=== PATIENT | female | born 1965 | race Caucasian/White ===

== ENCOUNTER 2019-07-15 08:04 | Emergency (ER) | payer SELFPAY ==
[~2019-07-15 08:04] MED LIST: AMOXICILLIN500 MG PO; NAPROSYN500 MG PO; NO HOME MEDS; VENTOLIN HFA IN; ZITHROMAX250 MG OR
[2019-07-15] MEDS ORDERED: ZPAK PO (08:54)
[2019-07-15 09:21] VITALS: BP 141/80
[2019-12-27] MEDS ORDERED: LYRICA150 MG PO (10:07)
[2019-12-27] MEDS ORDERED: MEDDOSEPAK PO (10:08)
[2019-12-28] MEDS ORDERED: LOPRESSOR25 M1 PO (10:55)
[2019-12-28] MEDS ORDERED: LIPITOR80 M1 PO (10:58)
== END 2019-07-15 09:20 | disposition home or self-care (01) | DRG 153 ==
LOC: ED 08:04
DX: J06.9 Acute upper respiratory infection, unspecified (principal); F17.210 Nicotine dependence, cigarettes, uncomplicated

== ENCOUNTER 2019-11-23 15:27 | Inpatient (IN) | payer BC ==
[2019-11-23] VITALS (8 sets, daily range): BP systolic 128–183; BP diastolic 78–93
[~2019-11-23] VITALS: Ht 157.5 cm; Wt 75.0 kg
[~2019-11-23 15:27] MED LIST changes: +ZPAK PO
--- NOTE | 2019-11-23 15:28 | NUR ---
UPON ARRIVAL TO ER PT RESPONDING TO TACTILE STIMULI, PEE, BUT TEMP RIGHT SIDED GAZE NOTED. PT MEDICATED WITH NARCAN 0.8 IV WITH NO CHANGE IN MENTAL STATUS. PER EMS NARCAN 4MG IVP GIVEN ENROUTE WITH SIGNIFICANT CHANGE.
--- NOTE | 2019-11-23 15:30 | NUR ---
NO RIGHT SIDED GAZE NOTED AT THIS ITME. PT LOOKING AROUND ROOM AND LOOKS IN THE DIRECTION OF NURSES TALKING.
--- NOTE | 2019-11-23 15:38 | NUR ---
PER EMS - APPROXIMATELY 45 MINUTES AGO, PT WAS SITTING WITH FRIENDS, SHE STATED THAT SHE FELT HER BLOOD SUGAR WAS GETTING LOW SO SHE WENT INTO THE KITCHEN TO EAT SOMETHING. FRIENDS FOUND PT UNRESPONSIVE , CALLED 911, PER EMS PT WAS SLOW TO RESPOND TO TACTILE STIMULI. INITIAL 02 SAT 89% - PLACED ON NRB - 02 AT 100% PT HAS HX OF DM , ACCUCHECK 102 BY EMS.
--- NOTE | 2019-11-23 15:40 | NUR ---
ROCURONIUM 100MG AND ETOMIDATE 20MG IVP PRIOR TO ET TUBE PLACEMENT. RT AT BEDSIDE TO ASSIST WITH INTUBATION. GOOD BREATH SOUNDS NOTED, 02 100% AT THIS TIME. TUBE SECURELY PLACED PER [facility] POLICY.
--- NOTE | 2019-11-23 15:49 | NUR ---
DAUGHTER ON PHONE WITH GEETA BENSONCOIL BINDER NURSE, SHE STATES " MOM IS TAKING LYRICA THAT ISN'T PRESCRIBED TO HER. FAMILY MEMBER IS UNAWARE OF HOW MUCH LYRICA MOTHER HAS TAKEN.
--- NOTE | 2019-11-23 15:53 | NUR ---
DYSPHAGIA SCREEN DEFERRED S/T PT INTUBATED AND SEDATED AT THIS TIME.
[2019-11-23 15:55] LABS: GFR > 60 ML/MIN (>=60 (CALC)); GFR FOR AFR.AMER. > 60 ML/MIN (>=60 (CALC))
--- NOTE | 2019-11-23 16:00 | NUR ---
BILATERAL SOFT WRIST RESTRAINTS INITIATED.
--- NOTE | 2019-11-23 16:10 | NUR ---
PT HYPERTENSIVE AT 192/96 AND SOME TWITCHING NOTED TO FACE. DR EASLEY GAVE VERBAL ORDER FOR 5 ML [address]OL IVP. DR EASLEY AND BEDSIDE AND GAVE 5 ML OF PROPOFOL IVP. PT NOW SEDATED.
[2019-11-23 16:18] LABS: HEMATOCRIT 36.5 % (37.0-47.0); HEMOGLOBIN 11.4 g/dl (12.0-16.0); IMMATURE GRANULOCYTES 0.3 % (0.0-5.0); MEAN CELL VOLUME 82.8 fL CALC (80.0-100.0); MEAN CORPUSCULAR HGB 25.9 pG CALC (26.0-32.0); MEAN CORPUSCULAR HGB CONC 31.2 g/dL CAL (32.0-36.0); NEUT# 2.96 thou/uL (2.00-7.15); RED BLOOD COUNT 4.41 mill/uL (4.20-5.60); RED CELL DISTRI WIDTH 17.2 % (11.5-15.5)
--- NOTE | 2019-11-23 16:22 | NUR ---
TO CT SCAN WITHOUT INCIDENT. PT REMAINED SEDATED.
[2019-11-23 16:24] LABS: INTERNATIONAL NORMALIZED RATIO 1.2 RATIO (0.7-1.3); PROTHROMBIN TIME 12.3 SECONDS (9.0-12.5)
[2019-11-23 16:36] LABS: MYOGLOBIN 27 ng/mL (0 - 62)
[2019-11-23 16:40] LABS: ALBUMIN 3.5 g/dL (3.2-5.0); ANION GAP 8 (6-22 (CALC)); BUN 6 mg/dL (7-17); BUN/CREATININE RATIO 10 (12-20 (CALC)); C-REACTIVE PROTEIN < 0.5 mg/dL (0-0.9); CARBON DIOXIDE 21 mmol/l (22-30); CHLORIDE 111 mmol/l (95-108); CREATININE 0.6 mg/dL (0.5-1.0); ETHYL ALCOHOL 0 mg/dl (0-30); GFR > 60 ML/MIN (>=60 (CALC)); GFR FOR AFR.AMER. > 60 ML/MIN (>=60 (CALC)); LIPASE 263 u/l (23-300); POTASSIUM 3.4 mmol/l (3.5-5.1); SODIUM 137 mmol/l (137-146); TOTAL PROTEIN 6.9 g/dL (6.3-8.2); URINE BILIRUBIN - DIPSTICK NEGATIVE (NEGATIVE); URINE BLOOD DIPSTICK NEGATIVE (NEGATIVE); URINE COLOR YELLOW; URINE GLUCOSE - DIPSTICK NEGATIVE (NEGATIVE); URINE KETONE NEGATIVE (NEGATIVE); URINE LEUK ESTERASE NEGATIVE (NEGATIVE); URINE PROTEIN - DIPSTICK NEGATIVE (NEG-TRACE); URINE SPECIFIC GRAVITY 1.015; URINE UROBILINOGEN - DIPSTICK 0.2 E.U./dL (0.2)
[2019-11-23 16:42] LABS: URINE NITRITE - DIPSTICK POSITIVE (Negative)
[2019-11-23 16:46] LABS: ALKALINE PHOSPHATASE 185 u/l (38-126); BILIRUBIN, TOTAL 0.5 mg/dL (0.0-1.4); SGOT/AST 81 u/l (14-36)
--- NOTE | 2019-11-23 16:48 | NUR ---
RETURNED FROM CT SCAN WITHOUT INCIDENT.PT REMAINED SEDATED.
[2019-11-23 16:53] LABS: URINE BACTERIA MODERATE hpf; URINE RBC 0-2 RBC/hpf (0-5); URINE SQUAMOUS EPITHELIAL CELL FEW EPI/hpf (0-FEW); URINE WBC 0-2 WBC/hpf (0-5)
--- NOTE | 2019-11-23 17:10 | NUR ---
PT FLAILING ARMS AND SHAKING HEAD. MD NOTIFIED. AWAITING NEW ORDERS.
--- NOTE | 2019-11-23 17:20 | NUR ---
AFTER ADMINISTERING FENTANYL PT RESTING COMFORTABLY AND IS SEDATED.
--- NOTE | 2019-11-23 17:30 | NUR ---
PATIENT REMAINS SEDATED, 800 MLS OF EDUARDO COLORED URINE EMPTIED FROM YING.
--- NOTE | 2019-11-23 17:46 | NUR ---
SISTER IN LAW AT BEDSIDE. VERSED AND LEVAPHED INITIATED. PLAN FOR ADMISSION DISCUSSED WITH FAMILY. FAMILY REPORTS PTS MOTHER INTUBATED IN [place] FOR COVID 19. PT HAD BEEN TESTED AND FAMILY STATES WAS NEGATIVE AT THAT TIME.
--- NOTE | 2019-11-23 18:00 | NUR ---
FAMILY REPORTS PT HAS NEW DX OF HEP C AND LIVER DISEASE. MD NOTIFIED.
--- NOTE | 2019-11-23 18:24 | NUR ---
FAMILY AT BEDSIDE. PT REMAINS SEDATED. IV SITES FREE FROM REDNESS OR EDEMA.
--- NOTE | 2019-11-23 18:45 | NUR ---
REINFORED VISITATION WITH PT'S SITER IN LAW.
--- NOTE | 2019-11-23 18:53 | NUR ---
MINIMAL MOVEMENT NOTED TO BILAT ARMS, [place] INCREASED. FAMILY AT BEDSIDE.
--- NOTE | 2019-11-23 19:00 | NUR ---
CALL PLACED TO ICU SPOKE TO REMIGIO, STATES "IN THE MIDDLE OF REPORT, THEY WILL CALL YOU BACK."
--- NOTE | 2019-11-23 19:11 | NUR ---
NURSE TO NURSE REPORT CALLED TO KARY BENSON.
--- NOTE | 2019-11-23 19:30 | NUR ---
AWAITING ICU ACCEPTANCE. PT RESTING. OCCASIONAL MOVEMENT OF ARMS WHICH ARE IN SOFT RETRAINTS. VSS. DRIPS INFUSING INTO CENTRAL LINE.
--- NOTE | 2019-11-23 19:45 | NUR ---
KELLEY PRESTON, ICU CALLED TO HAVE PT BROUGHT UP RT CALLED.
--- NOTE | 2019-11-23 20:10 | NUR ---
PT BAGGED AND ON PORTABLE MONITOR.
--- NOTE | 2019-11-23 20:10 | NUR ---
PT TO ICU BED 8. INTUBATED, BAGGING IN PROCESS FOR TRANSPORT.
--- NOTE | 2019-11-23 20:10 | NUR ---
PT READIED FOR TRANPORT. RT HERE. PT TO FLOOR VIA STRETCHER WITH ET/OG/CENTRAL LINE WITH VERSED/DIPROVAN/LEVAPHED DRIP.
--- NOTE | 2019-11-23 20:15 | NUR ---
RECEIVED PT FROM ER, PT SEDATED ON VENT. #18 OG, #16F YING CATH, DRAINING CLEAR YELLOW URINE. #20 EMS IV L HAND, #20 IV R WRIST, TRIPLE LUMEN R IJ. VERSED GTT AT 3MG/HR INFUSING, PROPOFOL AT 50MCG/KG/MIN INFUSING, LEVOPHED AT 8MCG/MIN INFUSING ALL TO R C-LINE. SOFT RESTRAINTS TO BILAT WRIST.
--- NOTE | 2019-11-23 20:30 | NUR ---
PT TRANSPORTED TO ICU 8. PLACED BACK ON MECHANICAL VENTILATION. RT CALLED ER'S DOCTOR TO ASK IF HE WANTS TO ORDER A BLOOD GAS. TALK TO SELAM MCMILLAN.
--- NOTE | 2019-11-23 22:40 | NUR ---
ATTEMPTED TO DECREASE PROPOFOL AND VERSED DRIPS, PT STARTED PULLING AT RESTRAINTS, MOVING LEGS. MEDS REMAINED AT PROPOFOL 50MCG/KG/MIN VERSED AT 2MG/HR.
[2019-11-24] VITALS (39 sets, daily range): BP systolic 115–167; BP diastolic 65–95
--- NOTE | 2019-11-24 | NUR ---
PT REMAINS SEDATED ON VENT. SA02 100% YING DRAINING CLEAR YELLOW URINE. VS PER MONITOR.
--- NOTE | 2019-11-24 02:00 | NUR ---
PT SEDATED ON VENT, SR 74, SA02 100% MOVING TONGUE WITH MOUTH CARE.
[2019-11-24 05:16] LABS: HEMATOCRIT 37.2 % (37.0-47.0); HEMOGLOBIN 11.4 g/dl (12.0-16.0); IMMATURE GRANULOCYTES 0.2 % (0.0-5.0); MEAN CELL VOLUME 84.4 fL CALC (80.0-100.0); MEAN CORPUSCULAR HGB 25.9 pG CALC (26.0-32.0); MEAN CORPUSCULAR HGB CONC 30.6 g/dL CAL (32.0-36.0); NEUT# 3.27 thou/uL (2.00-7.15); RED BLOOD COUNT 4.41 mill/uL (4.20-5.60); RED CELL DISTRI WIDTH 17.2 % (11.5-15.5)
[2019-11-24 05:27] LABS: ALBUMIN 3.2 g/dL (3.2-5.0); ALKALINE PHOSPHATASE 159 u/l (38-126); ANION GAP 6 (6-22 (CALC)); BILIRUBIN, TOTAL 0.3 mg/dL (0.0-1.4); BUN 4 mg/dL (7-17); BUN/CREATININE RATIO 9 (12-20 (CALC)); CHLORIDE 109 mmol/l (95-108); CREATININE 0.5 mg/dL (0.5-1.0); GFR > 60 ML/MIN (>=60 (CALC)); GFR FOR AFR.AMER. > 60 ML/MIN (>=60 (CALC)); POTASSIUM 3.8 mmol/l (3.5-5.1); SGOT/AST 73 u/l (14-36); SODIUM 139 mmol/l (137-146); TOTAL PROTEIN 6.5 g/dL (6.3-8.2)
[2019-11-24 05:28] LABS: CARBON DIOXIDE 28 mmol/l (22-30)
--- NOTE | 2019-11-24 06:00 | NUR ---
RT AT BEDSIDE FOR ABG. PT MOVING EXTREMITIES.
--- NOTE | 2019-11-24 07:18 | NUR ---
PT TURNED TO L SIDE. REMAINED SEDATED, ON VENT.
--- NOTE | 2019-11-24 07:45 | NUR ---
SEDATION REDUCED TO TEST FOR EXTUBATION. PT AGGRESSIVELY FIGHTING WITH STAFF, NOT FOLLOWING COMMANDS. SEDATION RESTARTED AT 9321
--- NOTE | 2019-11-24 08:08 | NUR ---
PTS SISTER, ALEJO RAJAN, CALLED FOR UPDATE ON PT. SISTER SPOKE WITH DR DSOUZA.
--- NOTE | 2019-11-24 08:11 | NUR ---
DAUGHTER CALLED FOR UPDATE ON MOM. DAUGHTER ASKED TO FOLLOW UP WITH AUNT D/T PT LOAD. DAUGHTER BECAME BELIGERENT WITH THIS RN. PHONE CONVERSATION COMPLETED.
--- NOTE | 2019-11-24 08:15 | NUR ---
SISTER AGREED TO BE SPOKES PERSON FOR PT. SISTER AWARE PT CAN NOT HAVE VISITORS AT THIS TIME.
--- NOTE | 2019-11-24 10:19 | NUR ---
RT TURNED O2 DOWN TO 50%
--- NOTE | 2019-11-24 10:32 | NUR ---
LIS RESTARTED AFTER PO MED GIVEN x1 HR AGO.
--- NOTE | 2019-11-24 11:04 | NUR ---
PTS SISTER, ALEJO, CALLED TO INFORM THAT PT SMOKED A "BLUNT" RIGHT BEFORE THIS HAPPENED AND SHE THINKS BLUNT MIGHT HAVE BEEN LACED WITH FENTENYL.
--- NOTE | 2019-11-24 12:56 | NUR ---
RT @BEDSIDE, O2 TITRATED DOWN TO 40%. SISTER, ALEJO CALLED FOR UPDATE.
--- NOTE | 2019-11-24 13:42 | NUR ---
PT CONTINUES TO BREATH AROUND TUBE, MOVE FEET, TRY TO BRING HANDS UP TO HEAD. SEDATION TITRATED. RESTRAINTS REPOSITIONED.
[2019-11-24] MEDS ORDERED: LYRICA75 MG PO (15:29)
[2019-11-24] MEDS ORDERED: MELOXICAM7.5 MG PO (15:29)
[2019-11-24] MEDS ORDERED: CYMBALTA60 MG PO (15:30)
[2019-11-24] MEDS ORDERED: METFORMIN HCL500 M1 PO (15:30)
[2019-11-24] MEDS ORDERED: COZAAR25 MG PO (15:30)
--- NOTE | 2019-11-24 16:29 | NUR ---
RT @BEDSIDE FOR DEEP SUCTIONING.
--- NOTE | 2019-11-24 17:14 | NUR ---
ALEJO KNIGHT, CALLED FOR UPDATE ON PT. PT APPEARS CALM/SEDATED. BREATHING NONLABORED, LUNGS CTA. SCD ON. VSS. IVF, PROPOFOL, VERSED DRIP RUNNING.
--- NOTE | 2019-11-24 17:18 | NUR ---
DR DSOUZA CALLED FOR PT UPDATE. WILL TRY TO EXTUBATE AGAIN TOMORROW AM.
--- NOTE | 2019-11-24 19:10 | NUR ---
PT SEDATED ON VENT. BILAT WRIST RESTRAINTS IN PLACE. NO DISTRESS NOTED.
--- NOTE | 2019-11-24 20:00 | NUR ---
PT SEDATED ON VENT. PROPOFOL INFUSING AT 55MCG, VERSED AT 20ML/HR. SEE RESTRAINT DOCUMENTATION. OG WITH YELLOW DRAINAGE, YING WITH EDUARDO URINE. SCD'S IN PLACE.
--- NOTE | 2019-11-24 21:30 | NUR ---
AUSCULTATED OG FOR PLACEMENT, POSITIVE FOR STOMACH. INSTILLED 12.5ML TAMIFLU FOLLOWED WITH 30 CC FLUSH.
--- NOTE | 2019-11-24 22:10 | NUR ---
RESP CALLED TO BEDSIDE FOR VENT FILTER. CHANGED BY RT.
--- NOTE | 2019-11-24 22:15 | NUR ---
RT AT BEDSIDE, PT DEEP SUCTIONED.
--- NOTE | 2019-11-24 22:25 | NUR ---
SPOKE WITH ALEJO, FAMILY MEMBER, UPDATE PROVIDED.
--- NOTE | 2019-11-24 22:35 | NUR ---
PATIENT RECEIVED WITH THE FOLLOWING SETTING: AC 20, VT 400, 5PEEP WITH 40% FIO2.
--- NOTE | 2019-11-24 23:45 | NUR ---
PT PULLING AT RESTRAINTS. PROPOFOL GTT TO 60MCG, VERSED TO 3MG/HR.
[2019-11-25] VITALS (47 sets, daily range): BP systolic 129–196; BP diastolic 68–115
--- NOTE | 2019-11-25 00:30 | NUR ---
PT MOVING HEAD, PULLING AT VENT TUBING. PT MOVING UPPER EXTREMITIES, PULLING AGAINST RESTRAINTS. PROPOFOL INCREASED TO 65MCG
--- NOTE | 2019-11-25 02:00 | NUR ---
PT WITH MOVEMENT TO UPPER EXTREMITIES. ORAL CARE PROVIDED, PUSHES TONGUE TOWARD SPONGE.
--- NOTE | 2019-11-25 03:45 | NUR ---
BED BATH AND ORAL CARE PROVIDED. LINENS CHANGED.
--- NOTE | 2019-11-25 04:00 | NUR ---
SCD'S OFF AT BATH.
--- NOTE | 2019-11-25 04:30 | NUR ---
PT RESTING QUIETLY.
[2019-11-25 05:40] LABS: HEMATOCRIT 35.9 % (37.0-47.0); HEMOGLOBIN 11.2 g/dl (12.0-16.0); MEAN CELL VOLUME 83.7 fL CALC (80.0-100.0); MEAN CORPUSCULAR HGB 26.1 pG CALC (26.0-32.0); MEAN CORPUSCULAR HGB CONC 31.2 g/dL CAL (32.0-36.0); RED BLOOD COUNT 4.29 mill/uL (4.20-5.60); RED CELL DISTRI WIDTH 17.5 % (11.5-15.5)
--- NOTE | 2019-11-25 05:52 | NUR ---
RESP AT BEDSIDE FOR ABG.
[2019-11-25 05:56] LABS: ALBUMIN 2.8 g/dL (3.2-5.0); ALKALINE PHOSPHATASE 144 u/l (38-126); ANION GAP 7 (6-22 (CALC)); BILIRUBIN, TOTAL 0.4 mg/dL (0.0-1.4); BUN 5 mg/dL (7-17); BUN/CREATININE RATIO 11 (12-20 (CALC)); CARBON DIOXIDE 24 mmol/l (22-30); CHLORIDE 111 mmol/l (95-108); CREATININE 0.5 mg/dL (0.5-1.0); GFR > 60 ML/MIN (>=60 (CALC)); GFR FOR AFR.AMER. > 60 ML/MIN (>=60 (CALC)); POTASSIUM 3.2 mmol/l (3.5-5.1); SGOT/AST 63 u/l (14-36); SODIUM 138 mmol/l (137-146); TOTAL PROTEIN 6.2 g/dL (6.3-8.2)
--- NOTE | 2019-11-25 06:45 | NUR ---
RECVD REPORT FROM KELLEY PRESTON @START OF SHIFT.
--- NOTE | 2019-11-25 08:06 | NUR ---
EXTUBATION ATTEMPTED/ RT @BEDSIDE: PROPOFOL & VERSED DRIP STOPPED @0713 RT PLACED VENT ON RATE 12, PT IS BREATHING 18 @0718 EYES OPEN OCCASSIONALY @0739 PT SQUIRMING ALL OVER BED, KICKING LEGS, PULLING ON WRIST RESTRAINTS, UNABLE TO FOLLOW DIRECTIONS. MD @BEDSIDE. PROPOFOL RESTARTED @0800. WILL TRY TO EXTUBATE AGAIN AROUND NOON.
--- NOTE | 2019-11-25 08:11 | NUR ---
PT note Patient is screened for rehab intervention. She is still early in her medical evaluation and we will hold off on any rehab but follow through interdisciplinary team
--- NOTE | 2019-11-25 08:33 | NUR ---
RT PLACED PT ON SPONTANEOUS VENT. PT NOW APPEARS RESTFUL. BED ALARM SET TO NOTIFY STAFF OF CONTINUED MOVEMENT.
--- NOTE | 2019-11-25 08:50 | NUR ---
TRIED TO CALL PTS EUGENE FOR UPDATE- NO ANSWER
--- NOTE | 2019-11-25 10:46 | NUR ---
RT @BEDSIDE FOR ASSESSMENT.
--- NOTE | 2019-11-25 12:09 | NUR ---
PROPOFOL TITRATED DOWN TO 35MCG/KG/MIN @1128 PROPOFOL STOPPED FOR EXTUBATION TEST @1135 PROFOL RESTARTED AT 65MCG/KG/MIN @1205 DR DSOUZA NOTIFIED OF UNSUCCESSFUL ATTEMPT.
--- NOTE | 2019-11-25 13:15 | NUR ---
S: DEVENDRA CONNELLY is a 53 F who presents with bacteremia. She has a history of diabetes and Hepatitis C. All medications in patient's chart were reviewed. O: VS: BP 182/92 mmHg, P 108 bpm, RR 35 breaths/min, T 98 F W 75 kg, HT 157.48 cm, Scr= 0.5 mg/dL, CrCl= 104 ml/min A: Blood culture pending, preliminary results show gram positive cocci in 1 of 4 bottles . Urine culture shows E. Coli which is sensitive to ceftriaxone. Sputum cuture pending, preliminary results show normal respiratory suraj. P: Patient is on ceftriaxone 1gm IV Q24H. Vancomycin ordered for pharmacy to dose. Start Vancomycin 1250mg IV Q12H. Vancomycin trough is drawn before the 4th dose on 11/26/20192029. Vancomycin goal trough is between 15-20 mcg/ml. Pharmacy will follow and or advise on antibiotics use as needed.
--- NOTE | 2019-11-25 13:52 | NUR ---
PT APPEARS RESTING PEACEFULLY AT THIS TIME. VSS. WILL CONTINUE TO MONITOR.
--- NOTE | 2019-11-25 14:09 | NUR ---
ATIVAN DRIP STARTED. RT NOTIFIED TO CHANGE VENT SETTINGS. 2 PERIPHERAL IVS D/C'D; #20 LEFT WRIST D/C BY PT DURING WAKE TRIAL & #20 RIGHT WRIST D/C. PT HAS VERY POOR & MINIMAL DENTATION. RETURNED TO PREVIOUS VENT SETTINGS OF TV 400, PEEP 5, O2 40%, RATE 20.
--- NOTE | 2019-11-25 15:25 | NUR ---
PT REMAINS RESTFUL, NO BACK, HOB 45%. NS @100, PROPOFOL 65, ATIVAN 1 INFUSION. VSS. WILL CONTINUE TO MONITOR.
--- NOTE | 2019-11-25 17:21 | NUR ---
RT @BEDSIDE FOR ASSESSMENT. PT CALM/RESTING IN BED, NO S/S OF DISTRESS AT THIS TIME. WILL CONTINUE TO MONITOR.
--- NOTE | 2019-11-25 20:00 | NUR ---
vent cont assisted by pt. remains sedated. coarse breath sounds thruout. monitor technician shows sinus rhythm pvcs hr 80. rij tlc in place. ivf infusing well. jamison cath in place. urine lt green. og cont to lis draining dk green. requires total care for all needs. bilat scds, wrist restraints, air/cont precautions cont.
--- NOTE | 2019-11-25 22:00 | NUR ---
vent cont assisted by pt. dunbar. desk monitor shows sinus rhythm pvcs hr 76.
[2019-11-26] VITALS (16 sets, daily range): BP systolic 142–190; BP diastolic 81–97
--- NOTE | 2019-11-26 00:01 | NUR ---
vent cont assisted by pt. ivf infusing well. jamison draining well.
--- NOTE | 2019-11-26 02:00 | NUR ---
resting quietly. nad. vent cont. well services operator shows sinus rhythm pvcs hr 82
--- NOTE | 2019-11-26 04:00 | NUR ---
vent cont assisted by pt. dunbar. special warfare operator shows sinus rhythm pvcs hr 74
--- NOTE | 2019-11-26 04:30 | NUR ---
blood drawn & sent to lab.
--- NOTE | 2019-11-26 05:00 | NUR ---
rt here. abgs drawn.
--- NOTE | 2019-11-26 05:15 | NUR ---
xray here. pcxr obtained. bath & linen change x2 assists.
[2019-11-26 05:16] LABS: HEMATOCRIT 34.3 % (37.0-47.0); HEMOGLOBIN 10.7 g/dl (12.0-16.0); MEAN CELL VOLUME 84.3 fL CALC (80.0-100.0); MEAN CORPUSCULAR HGB 26.3 pG CALC (26.0-32.0); MEAN CORPUSCULAR HGB CONC 31.2 g/dL CAL (32.0-36.0); RED BLOOD COUNT 4.07 mill/uL (4.20-5.60); RED CELL DISTRI WIDTH 17.7 % (11.5-15.5)
[2019-11-26 05:36] LABS: ANION GAP 7 (6-22 (CALC)); BUN 6 mg/dL (7-17); BUN/CREATININE RATIO 16 (12-20 (CALC)); CARBON DIOXIDE 23 mmol/l (22-30); CHLORIDE 113 mmol/l (95-108); CREATININE 0.4 mg/dL (0.5-1.0); GFR > 60 ML/MIN (>=60 (CALC)); GFR FOR AFR.AMER. > 60 ML/MIN (>=60 (CALC)); POTASSIUM 3.4 mmol/l (3.5-5.1); SODIUM 140 mmol/l (137-146)
--- NOTE | 2019-11-26 06:45 | NUR ---
RECIEVED REPORT FROM CAS CUMMINGS. ASSUMED PT CARE
--- NOTE | 2019-11-26 07:45 | NUR ---
RT AT BEDSIDE
--- NOTE | 2019-11-26 08:00 | NUR ---
PT SEDATED IN BED, INTUBATED, SEE RT VENT SETTING. ASSESSMENT COMPLETED. PT REPOSITIONED, MOUTH CARE, YING CARE DONE. SR ON TELEMETRY, HR 76. YING PATENT, DRAINING TO BSD VIA GRAVITY. SA02@100%, LS COARSE THROUGHOUT. WILL MONITOR CLOSELY.
--- NOTE | 2019-11-26 09:15 | NUR ---
DR. CHE AT BEDSIDE FOR ASSESSMENT AND TO DISCUSS PLAN OF CARE. RT AT BEDSIDE.
--- NOTE | 2019-11-26 09:19 | NUR ---
SISTER CALLED WITH CODE, UPDATE GIVEN.
--- NOTE | 2019-11-26 10:00 | NUR ---
PT REPOSITIONED, MOUTH CARE DONE. PT REMAINS SEDATED. NO DISTRESS NOTED.
--- NOTE | 2019-11-26 12:00 | NUR ---
RT AT BEDSIDE, PT REPOSITIONED, MOUTH CARE, DONE. SA02@98%. YING REMAINS PATENT, DRAINING TO BSD VIA GRAVITY.
--- NOTE | 2019-11-26 12:03 | NUR ---
PT FATHER JULY RAJAN CALLED WITH CODE, UPDATE GIVEN. PT FATHER STATED THAT IF ANY DICISIONS ARE TO BE MADE HE IS THE ONE TO DECIDE. FATHER WAS EDUCATED THAT THAT WOULD REQUIRE POA OR TO BE LISTED AT NEXT OF KIN. FATHER THEN STATED THAT I WOULD BE HEARING FROM HIS MANAGER OF APPLICATION DEVELOPMENT.
--- NOTE | 2019-11-26 13:45 | NUR ---
ALEJO RAJAN CALLED WITH CODE, UPDATE GIVEN.
--- NOTE | 2019-11-26 14:00 | NUR ---
PT REPOSITIONED, MOUTH CARE GIVEN, YING REMAINS PATENT, DRAINING TO BSD VIA GRAVITY. SA02@97%. WILL MONITOR.
--- NOTE | 2019-11-26 16:00 | NUR ---
PT REMAIN INTUBATED, SA02@97%. MOUTH CARE, YING CARE, PT REPOSITIONED. NO DISTRESS NOTED AT THIS TIME. WILL MONITOR.
--- NOTE | 2019-11-26 17:14 | NUR ---
ALEJO RAJAN, PT SNL WOULD LIKE TO SPEAK WITH THE MD AND HAVE THE PT TRANSFERRED TO [facility] SO THAT THE PT'S BRAIN ACTIVITY CAN BE MONITORED. DR. CHE NOTIFIED.
--- NOTE | 2019-11-26 18:05 | NUR ---
RT AT BEDSIDE, PT REPOSITIONED. NO DISTRESS NOTED AT THIS TIME. WILL MONITOR.
--- NOTE | 2019-11-26 19:05 | NUR ---
sedated. vent cont assisted by pt. coarse breath sounds bilat. og cont to lis draining green. gambling monitor shows sinus rhythm pvcs hr 84. jamison cath in place. urine lt trip. bilat wrist restraints, scds & fall precautions cont. requires total care for all needs. turned & repositioned.
--- NOTE | 2019-11-26 22:00 | NUR ---
vent cont assisted by pt. gen edema conts. jamison draining well.
[2019-11-27] VITALS (21 sets, daily range): BP systolic 145–174; BP diastolic 76–89
--- NOTE | 2019-11-27 00:01 | NUR ---
vent cont assisted by pt. nurse monitoring shows sinus rhythm pvcs hr 82.
--- NOTE | 2019-11-27 02:00 | NUR ---
eyes closed. nad. manager cardiac shows sinus rhythm pvcs hr 82. ivf infusing well.
--- NOTE | 2019-11-27 04:00 | NUR ---
vent cont assisted by pt. dunbar. air sampling and monitoring shows sinus rhythm pvcs hr 82.
--- NOTE | 2019-11-27 04:30 | NUR ---
bath & linen change done.
--- NOTE | 2019-11-27 05:15 | NUR ---
xray here. pcxr obtained.
--- NOTE | 2019-11-27 05:24 | NUR ---
rt here. dana obtained.
--- NOTE | 2019-11-27 08:00 | NUR ---
PT ASSESSED, PT INTUBATED AND SEDATED RESTING IN BED, AFEBRILE. WITHDRAWS TO PAIN, PUPILS 3MM PERRL. LUNGS ARE COARSE THROUGHOUT, PT INLINE SUCTIONED- COPIOUS AMOUNT OF THICK SECRETIONS OUT, BLOOD TINGED AND REBOLLEDO IN COLOR. SEE PROCESS INTERVENTIONS FOR FULL ASSESSMENT
--- NOTE | 2019-11-27 10:00 | NUR ---
DR CHE AT BEDSIDE, ORDER FOR RT TO ADMINISTER MUCOMIST TO HELP WITH SECRETION BREAKDOWN.
[2019-11-27 10:48] LABS: HEMATOCRIT 34.9 % (37.0-47.0); IMMATURE GRANULOCYTES 0.2 % (0.0-5.0); MEAN CELL VOLUME 83.5 fL CALC (80.0-100.0); MEAN CORPUSCULAR HGB 26.3 pG CALC (26.0-32.0); MEAN CORPUSCULAR HGB CONC 31.5 g/dL CAL (32.0-36.0); NEUT# 2.32 thou/uL (2.00-7.15); RED BLOOD COUNT 4.18 mill/uL (4.20-5.60); RED CELL DISTRI WIDTH 17.7 % (11.5-15.5)
[2019-11-27 11:03] LABS: ANION GAP 5 (6-22 (CALC)); BUN 7 mg/dL (7-17); BUN/CREATININE RATIO 19 (12-20 (CALC)); CARBON DIOXIDE 24 mmol/l (22-30); CHLORIDE 112 mmol/l (95-108); CREATININE 0.4 mg/dL (0.5-1.0); GFR > 60 ML/MIN (>=60 (CALC)); GFR FOR AFR.AMER. > 60 ML/MIN (>=60 (CALC)); POTASSIUM 3.2 mmol/l (3.5-5.1); SODIUM 137 mmol/l (137-146)
--- NOTE | 2019-11-27 11:50 | NUR ---
PT WAKE UP ASSESSMENT ATTEMPTED, UNSUCCESSFUL AT THIS TIME, PT UNABLE TO TOLERATE- BP 181/89 AND BREATHING OVER THE VENT 20/MIN. COPIOUS AMOUNT OF SECRETIONS SUCTIONED VIA INLINE AT THIS TIME. PT SEDATION BACK ON.
--- NOTE | 2019-11-27 17:55 | NUR ---
RT CALLED FOR ABG, PT HAS COPIOUS AMOUNT OF THICK SECRETIONS OUT OF INLINE SUCTION.
--- NOTE | 2019-11-27 18:24 | NUR ---
SPOKE TO ALEJO SHNANON, UPDATED REGARDING PT STATUS AT THIS TIME.
--- NOTE | 2019-11-27 20:00 | NUR ---
remains sedated. vent cont assisted by pt. coarse breath sounds bilat. og to lis. electronic device monitor shows sinus rhythm pvcs hr 78. rij tlc in place. ivf infusing well. jamison cath in place. urine yellow. bilas scds, wrist restraints, fall & air/contact precautions cont. turned & repositioned. requires total care for all needs.
--- NOTE | 2019-11-27 22:00 | NUR ---
eyes closed. nad. panel monitor shows sinus rhythm pvcs hr 78.
[2019-11-28] VITALS (30 sets, daily range): BP systolic 135–205; BP diastolic 67–113
--- NOTE | 2019-11-28 00:01 | NUR ---
vent cont assisted by ptVeronica dunbar. ivf infusing well.
--- NOTE | 2019-11-28 02:00 | NUR ---
resting quietly. nad vent cont assisted by pt. property assessment monitor shows sinus rhythm pvcs hr 82.
--- NOTE | 2019-11-28 04:00 | NUR ---
remains sedated. nad. jamison draining well.
--- NOTE | 2019-11-28 05:00 | NUR ---
xray here. pcxr obtained. rt here. abdgs drawn. bath & linen change done.
--- NOTE | 2019-11-28 06:00 | NUR ---
vent cont assisted by pt. dunbar. final touch up painter shows sinus rhythm pvcs hr 74.
--- NOTE | 2019-11-28 06:45 | NUR ---
RECVD REPORT FROM CAS CUMMINGS @START OF SHIFT
--- NOTE | 2019-11-28 07:13 | NUR ---
RT @BEDSIDE FOR TREATMENT. ASSMENT COMPLETE. GENERALIZED EDEMA TO EXTREMETIES. BILATERAL WRIST RESTRAINTS IN PLACE. PUPILS REACTIVE. HYPOACTIVE BS. LUNGS CLEAR UPPER, DIMINISHED LOWER. VENT SETTINGS; R 20, TV 400, PEEP 5, O2 50%. PT HAS A FOUL BODY ODOR DESPITE MULTIPLE BATHS.
--- NOTE | 2019-11-28 08:34 | NUR ---
DR SCRUGGS @BEDSIDE, ASSESSING PT. ERQUEST WAKE TRIAL. PROPOFOL & ATIVAN DRIP STOPPED.
--- NOTE | 2019-11-28 08:44 | NUR ---
NO MOVEMENT/RESPONSE FROM PT. SEDATION REMAINS OFF.
--- NOTE | 2019-11-28 09:15 | NUR ---
PT MEDICATED, LIS OFF. PT SUCTIONED MULTIPLE TIMES; DEEP & ORAL. SLIGHT MOVEMENTS STARTED. DOES NOT FOLLOW DIRECTIONS.
--- NOTE | 2019-11-28 09:25 | NUR ---
RT PLACED PT ON CPAP.
--- NOTE | 2019-11-28 09:33 | NUR ---
DR SCRUGGS NOTIFIED OF TIME SINCE ALL SEDATION STOPPED, RT PLACED PT ON CPAP, MINIMAL MOVEMENT FROM PT.
--- NOTE | 2019-11-28 09:56 | NUR ---
MD AWARE OF BP OF 194/109. PT MOVING HEAD SIDE/SIDE.
--- NOTE | 2019-11-28 10:00 | NUR ---
PT READJUSTED IN BED, RESTRAINTS REPOSITIONED, MOUTH CARE COMPLETED.
--- NOTE | 2019-11-28 10:25 | NUR ---
RT @BEDSIDE FOR DEEP SUCTIONING.
--- NOTE | 2019-11-28 11:39 | NUR ---
PT APPEARS RESTFUL. NO MOVEMENTS. ON CPAP SETTING ON VENT. ONLY ON ATIVAN DRIP AT 5 & NS. BILATERAL SOFT WRIST RESTRAINTS ON. CATH YING DRAINGING TO GRAVITY. MONITORING NEURO & BP.
--- NOTE | 2019-11-28 12:00 | NUR ---
PT READJUSTED IN BED, RESTRAINTS REPOSITIONED, MOUTH CARE COMPLETED.
--- NOTE | 2019-11-28 12:13 | NUR ---
DR SCRUGGS UPDATED ON PTS STATUS.
--- NOTE | 2019-11-28 12:32 | NUR ---
DR SCRUGGS @BEDSIDE ASSESSING PT AGAIN. TRANSFER TO [facility] FOR NEURO: EEG & MRI
--- NOTE | 2019-11-28 12:49 | NUR ---
INITIATED TRANSFER TO [facility]; SPOKE WITH NEHEMIAS. OBTAINED TELEPHONE CONSENT FROM SISTER IN LAW, ALEJO TO TRANSFER TO [facility]; 2ND NURSE CAS AYNEZ.
--- NOTE | 2019-11-28 13:45 | NUR ---
MUCOMYST NOT GIVEN AT THIS TIME DUE TO SECRETIONS NO LONGER THICK. AWARE.
--- NOTE | 2019-11-28 13:58 | NUR ---
rt called to room for o2 of 89% on spontaneous vent controls.
--- NOTE | 2019-11-28 14:00 | NUR ---
PT READJUSTED IN BED, RESTRAINTS REPOSITIONED, MOUTH CARE COMPLETED.
--- NOTE | 2019-11-28 14:19 | NUR ---
PT RESTLESS IN BED, MOVING HEAD & EXTREMETIES BUT NOT OPENING EYES OR FOLLOWING COMMANDS. ATIVAN GTT TITRATED.
--- NOTE | 2019-11-28 14:37 | NUR ---
MARIO FROM [facility] CALLED WITH BED ASSIGNMENT OF [id number]. [facility] CALLED FOR TRANSPORT. ETA 45MINS
--- NOTE | 2019-11-28 15:37 | NUR ---
PT OUT THE DOOR WITH [facility] IN STABLE CONDITION W/ALL HER BELONGINGS.
--- NOTE | 2019-11-28 15:43 | NUR ---
REPORT GIVEN TO [facility].
[2019-12-27] MEDS ORDERED: LYRICA150 MG PO (10:07)
[2019-12-27] MEDS ORDERED: MEDDOSEPAK PO (10:08)
[2019-12-28] MEDS ORDERED: LOPRESSOR25 M1 PO (10:55)
[2019-12-28] MEDS ORDERED: LIPITOR80 M1 PO (10:58)
== END 2019-11-28 15:37 | disposition short-term general hospital (02) | DRG 91 ==
LOC: ED 15:27 → ED-I 15:53 → ED 17:47 → ICU 17:48
PROVIDERS: Family Medicine; Internal Medicine; ADMIT Internal Medicine; ATTEND Internal Medicine
PROC: 0BH17EZ Insertion of Endotracheal Airway into Trachea, Via Natural or Artificial Opening (ICD-10-PCS; principal; 2019-11-23)
PROC: 5A1955Z Respiratory Ventilation, Greater than 96 Consecutive Hours (ICD-10-PCS; 2019-11-23)
PROC: 0T9B70Z Drainage of Bladder with Drainage Device, Via Natural or Artificial Opening (ICD-10-PCS; 2019-11-23)
PROC: 05HM33Z Insertion of Infusion Device into Right Internal Jugular Vein, Percutaneous Approach (ICD-10-PCS; 2019-11-23)
DX: G92 Toxic encephalopathy (principal); J96.00 Acute respiratory failure, unspecified whether with hypoxia or hypercapnia; N39.0 Urinary tract infection, site not specified; J10.1 Influenza due to other identified influenza virus with other respiratory manifestations; R73.03 Prediabetes; F17.200 Nicotine dependence, unspecified, uncomplicated; B96.20 Unspecified Escherichia coli [E. coli] as the cause of diseases classified elsewhere; Z20.828 Contact with and (suspected) exposure to other viral communicable diseases
CPT/HCPCS: J1650; J2060; J3370; Q9967

== ENCOUNTER 2022-05-29 23:40 | Emergency (ER) | payer OTHER ==
[~2022-05-29] VITALS: Ht 154.9 cm; Wt 84.0 kg
[~2022-05-29 23:40] MED LIST changes: +COZAAR25 MG PO; +CYMBALTA60 MG PO; +LIPITOR80 M1 PO; +LOPRESSOR25 M1 PO; +LYRICA150 MG PO; +LYRICA75 MG PO; +MEDDOSEPAK PO; +MELOXICAM7.5 MG PO; +METFORMIN HCL500 M1 PO
[2022-05-30] MEDS ORDERED: LORTAB 1010 MG PO (01:30)
[2022-05-30 02:25] VITALS: BP 142/65
[2022-05-30] MEDS ORDERED: GLIPIZIDE ER5 MG PO (06:31)
== END 2022-05-30 02:25 | disposition home or self-care (01) ==
LOC: ED 23:40
DX: S92.515A Nondisplaced fracture of proximal phalanx of left lesser toe(s), initial encounter for closed fracture (principal); E11.9 Type 2 diabetes mellitus without complications; B19.20 Unspecified viral hepatitis C without hepatic coma; F17.200 Nicotine dependence, unspecified, uncomplicated; W22.09XA Striking against other stationary object, initial encounter; Y92.000 Kitchen of unspecified non-institutional (private) residence as the place of occurrence of the external cause; Z79.84 Long term (current) use of oral hypoglycemic drugs